=== PATIENT | female | born 2000 | race African-American/Black ===

== ENCOUNTER 2020-09-28 11:48 | Emergency (ER) | payer OTHER ==
[~2020-09-28] VITALS: Ht 149.9 cm; Wt 77.3 kg
[2020-09-28 11:50] VITALS: BP 114/60
[2020-09-28] MEDS ORDERED: LEVO75 PO (12:01)
[2020-09-28] MEDS ORDERED: IBUPROFEN 600 MG TABLET PO ONE (12:15)
[2020-09-28] MEDS ORDERED: PERTUSS(ACELL),DIPH,TET VAC/PF 0.5 ML SYRINGE IM. ONE (12:15)
== END 2020-09-28 12:51 | disposition home or self-care (01) ==
LOC: EMS 11:53
DX: S62.646A Nondisplaced fracture of proximal phalanx of right little finger, initial encounter for closed fracture (principal); S01.81XA Laceration without foreign body of other part of head, initial encounter; F17.210 Nicotine dependence, cigarettes, uncomplicated; W05.1XXA Fall from non-moving nonmotorized scooter, initial encounter; Y93.89 Activity, other specified; Y92.89 Other specified places as the place of occurrence of the external cause; Y99.8 Other external cause status
CPT/HCPCS: 90471; 90715; 99283